=== PATIENT | male | born 1985 | race Caucasian/White ===

== ENCOUNTER 2016-06-13 21:31 | Emergency (ER) | payer MEDICAID ==
[2016-06-13] MEDS ORDERED: LORazepam 2 MG/ML INJ ONE (21:36)
[2016-06-13] MEDS ORDERED: HALOPERIDOL LACT 5 MG/ML INJ ONE (21:36)
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
[2016-06-13 21:57] VITALS: BP 128/64; PULSE 84; RESP 18; TEMP 96.6; O2SAT 94
== END 2016-06-13 21:56 | disposition home or self-care (01) ==
LOC: EDUNIT#
DX: S00.81XA Abrasion of other part of head, initial encounter (principal); F10.120 Alcohol abuse with intoxication, uncomplicated; Z87.891 Personal history of nicotine dependence; X58.XXXA Exposure to other specified factors, initial encounter; Y93.89 Activity, other specified
CPT/HCPCS: J2060

== ENCOUNTER 2017-09-02 23:07 | Emergency (ER) | payer MEDICAID ==
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
[2017-09-03] MEDS ORDERED: LET GEL TOPICAL 1 EA SYR TP ONE ×3 (00:29→02:06)
[2017-09-03] MEDS ORDERED: CEPHALEXIN 500MG PREPACK#4 BTL TAKEHOME ONE (00:38)
[2017-09-03] MEDS ORDERED: IBUPROFEN 800 MG TAB PO ONE (00:38)
[2017-09-03] MEDS ORDERED: CEPHALEXIN 500 MG CAP PO ONE (00:38)
[2017-09-03] MEDS ORDERED: NS 1,000 ML IV ONE ×2 (01:19→05:12)
[2017-09-03 01:42] LABS: PLATELET COUNT 346 10^3/uL (150-400)
[2017-09-03 01:49] LABS: INR 0.95 (0.83-1.16); PROTIME(PATIENT) 12.9 SEC (12.0-15.0)
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
[2017-09-03] MEDS ORDERED: ceFAZolin 2 GM/DEXTROSE 100 ML IV ONE (05:12)
[2017-09-03 06:34] VITALS: BP 121/84
== END 2017-09-03 06:41 | disposition home or self-care (01) ==
DX: S62.101A Fracture of unspecified carpal bone, right wrist, initial encounter for closed fracture (principal); S01.81XA Laceration without foreign body of other part of head, initial encounter; S01.511A Laceration without foreign body of lip, initial encounter; F10.920 Alcohol use, unspecified with intoxication, uncomplicated; V19.3XXA Pedal cyclist (driver) (passenger) injured in unspecified nontraffic accident, initial encounter
CPT/HCPCS: 96365; G0480; J0690; L3925; L4386

== ENCOUNTER 2018-06-09 09:37 | Emergency (ER) | payer MEDICAID ==
--- NOTE | 2018-06-09 09:38 | EDPHY ---
H & P Time Seen by Provider: 06/09/18 09:38 HPI/ROS: HPI: This is a 32-year-old male who presents with Chief Complaint: Left great toe injury Location: Left great toe Quality: Injury Duration: Approximately 8 hr prior to arrival Signs and Symptoms: + bleeding, no radiation, no numbness, no weakness, no tingling, no incontinence, no decreased range of motion, no swelling, + pain, no fever Timing: Acute Severity: [id number] Context: Patient reports that he was playing video games last night kicking and punching when he accidentally hit the bottom of his left big toe on the video game controller. He reports that he felt immediate, constant, moderate pain and the injury started to bleed immediately. He washed it with some water and applied several Band-Aids for direct pressure to get the bleeding stopped. He then went to bed and woke up this morning and noted continued discomfort in his left great toe. Unsure of tetanus status. Denies radiation, weakness, decreased range of motion. He reports when he places his weight on the bottom of his left great toe he has increased pain. Modifying Factors: Local wound care, see above Comment: ROS: A comprehensive 10 system review of systems is otherwise negative aside from elements mentioned in the history of present illness. MEDICAL/SURGICAL/SOCIAL HISTORY: Medical history: Generally healthy. Does not take any medications. 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 Former tobacco user. CONSTITUTIONAL: Well-developed, well-nourished, adult white male, awake and alert, no obvious distress HEENT: Atraumatic and normocephalic, PERRL, EOMI. Nares patent; no rhinorrhea; no nasal mucosal edema. Tympanic membranes clear. Oropharynx clear, no exudate and moist pink mucosa. Airway patent. No lymphadenopathy. No meningismus. Cardiovascular: Normal S1/S2, regular rate, regular rhythm, without murmur rub or gallop. PULMONARY/CHEST: Symmetrical and nontender. Clear to auscultation bilaterally. Good air movement. No accessory muscle usage. ABDOMEN: Soft, nondistended, nontender, no rebound, no guarding, no peritoneal signs, no masses or organomegaly. No CVAT. EXTREMITIES: 2/2 pulses, strength 5/5, left great toe on the pad shows 1 inch x .25 in superficial, v-shaped skin avulsion sparing the nail with small pedicle still attached; DIP and MTP full range of motion of flexion and extension. Good light touch sensation. no clubbing, no cyanosis or edema. NEUROLOGICAL: no focal neuro deficits. GCS 15. SKIN: Warm and dry, no erythema. no rash. Good capillary refill. Source: Patient Exam Limitations: No limitations - Medical/Surgical History Hx Asthma: No Hx Chronic Respiratory Disease: No Hx Diabetes: No Hx Cardiac Disease: No Hx Renal Disease: No Hx Cirrhosis: No Hx Alcoholism: No Hx HIV/AIDS: No Hx Splenectomy or Spleen Trauma: No Other PMH: bilat ankle surgery, left ear surgery, right ACL - Social History Smoking Status: Former smoker Constitutional: Initial Vital Signs Temperature (C) 36.7 C 06/09/18 09:42 Heart Rate 76 06/09/18 09:42 Respiratory Rate 18 06/09/18 09:42 Blood Pressure 132/88 H 06/09/18 09:42 O2 Sat (%) 96 06/09/18 09:42 O2 Delivery Mode Room Air Allergies/Adverse Reactions: No Known Allergies Allergy (Verified 09/02/17 23:49) Home Medications: Medication Instructions Recorded Cephalexin [Keflex (*)] 500 mg PO Q6H #28 cap 09/03/17 Ibuprofen [Motrin (*)] 800 mg PO Q6-8PRN #14 tab 09/03/17 Medical Decision Making Procedures: Procedure: Skin avulsion removal from left great toe. Anesthesia: 6 cc 1% lidocaine without epinephrine After verbal consent was obtained, the superficial, 1 inch x .25 inch skin avulsion was removed from pad of the left great toe. The foreign body was removed manually with forceps under direct visualization. There were no complications. The procedure was performed by myself. ED Course/Re-evaluation: Tetanus booster given. Digital block performed and copiously irrigated Superficial, simple skin avulsion on the pad of the left great toe removed Bacitracin, nonocclusive dressing, clean sterile dressing applied Patient placed in postop shoe and given crutches to limit pressure on the left foot. No signs of neurovascular compromise/tenting of skin/compartment syndrome/ extremities and joints examined above and below area of concern and are neurovascularly intact. This patient was seen under the supervision of my secondary supervising physician. I evaluated care for this patient with attending. Differential Diagnosis: Differential diagnosis includes but is not limited to laceration, skin avulsion , nerve injury, tendon injury, foreign body. - Data Points Medications Given: Discontinued Medications Diphtheria/Tetanus/Acell Pertussis (Boostrix) 0.5 ml IM .ONCE ONE Stop: 06/09/18 09:45 Last Admin: 06/09/18 09:47 Dose: 0.5 ml Departure - Departure Disposition: Home, Routine, Self-Care Clinical Impression: Avulsion of skin of toe Qualifiers: Encounter type: initial encounter Qualified Code(s): S91.109A - Unspecified open wound of unspecified toe(s) without damage to nail, initial encounter Condition: Good Instructions: Skin Avulsion (ED) Additional Instructions: Wear the postop shoe until pain free. Use crutches to aid ambulation and limit use of left foot until pain free. Keep the dressing dry and in place for 48 hours. After 48 hours, you may remove the dressing; wash the site daily with mild soap and water; then pat dry. Apply topical antibiotic ointment and keep covered with sterile dressing until fully healed. Do not soak in a bathtub or go swimming until fully healed. Take Tylenol 650 mg every 4 hours and/or Ibuprofen 600 mg every 8 hours with food as needed for pain. Follow-up with Podiatry and 1-2 weeks if you have any further concerns. Referrals: Sayra Penaloza [Doctor of Podiatric Medicine] - As per Instructions
[2018-06-09 09:44] VITALS: BP 132/88
[2018-06-09] MEDS ORDERED: TDAP ADULT 0.5 ML INJ (BOOSTRIX) IM ONE (09:44)
== END 2018-06-09 10:06 | disposition home or self-care (01) ==
PROC: 3E0T3BZ Introduction of Anesthetic Agent into Peripheral Nerves and Plexi, Percutaneous Approach (ICD-10-PCS; principal; 2018-06-09)
DX: S91.105A Unspecified open wound of left lesser toe(s) without damage to nail, initial encounter (principal); Z23 Encounter for immunization; W22.8XXA Striking against or struck by other objects, initial encounter; Y93.C2 Activity, hand held interactive electronic device